=== PATIENT | female | born 1935 | race Asian ===

== ENCOUNTER 2017-01-28 15:29 | Emergency (ER) | payer MEDICARE, MEDICAID ==
[~2017-01-28] VITALS: Ht 162.6 cm; Wt 63.6 kg
[2017-01-28] MEDS ORDERED: FURO20 PO (16:02)
[2017-01-28] MEDS ORDERED: CEPHA2505L PO (16:29)
[2017-01-28] MEDS ORDERED: PRED20 PO (16:29)
[2017-01-28] MEDS ORDERED: DIPH12.54 PO (16:29)
[2017-01-28 16:45] LABS: EOSINOPHILS % (AUTO) 0.2 % (1.0-6.0); HEMATOCRIT 38.2 % (36-46); HEMOGLOBIN 12.4 g/dL (12.0-16.0); LYMPHOCYTES # (AUTO) 0.6 K/uL (1.0-4.8); LYMPHOCYTES % (AUTO) 8.1 % (22.0-44.0); MEAN CORPUSCULAR HEMOGLOBIN 25.3 pg (26.0-34.0); MEAN CORPUSCULAR HGB CONC 32.5 G/dL (31.0-37.0); MEAN CORPUSCULAR VOLUME 78 fL (80-100); MONOCYTES # (AUTO) 0.2 K/uL (0.1-1.0); MONOCYTES % (AUTO) 3.1 % (2.0-9.0); NEUTROPHILS # (AUTO) 6.2 K/uL (1.8-7.7); PLATELET COUNT (AUTO) 253 K/uL (150-450); RED CELL DISTRIBUTION WIDTH 16.3 % (11.5-14.5)
[2017-01-28 16:58] LABS: CALCIUM, TOTAL 8.1 mg/dL (8.8-10.5); CREATININE 1.15 mg/dL (0.60-1.30); POTASSIUM 3.9 mmol/L (3.5-5.1)
[2017-01-28 17:00] LABS: NEUTROPHILS % (AUTO) 88.6 % (40.0-70.0)
[2017-01-28 17:03] LABS: ALBUMIN 3.3 g/dL (3.4-5.0); BILIRUBIN,TOTAL 0.7 mg/dL (0.1-1.0); TOTAL PROTEIN, SERUM 6.1 g/dL (6.4-8.2)
[2017-01-28 17:07] LABS: INR 1.1 (0.9-1.1); PROTHROMBIN TIME 11.1 SEC (9.4-11.6)
[2017-01-28 17:18] LABS: RBC MORPHOLOGY COMMENT ABNORMAL RBC MORPH
[2017-01-28 18:30] VITALS: BP 126/82
== END 2017-01-28 19:04 | disposition home or self-care (01) ==
LOC: EMS 15:32
DX: N93.9 Abnormal uterine and vaginal bleeding, unspecified (principal); R60.0 Localized edema; G47.00 Insomnia, unspecified; I10 Essential (primary) hypertension; I48.91 Unspecified atrial fibrillation; E11.9 Type 2 diabetes mellitus without complications; Z79.82 Long term (current) use of aspirin
CPT/HCPCS: 76856; 93005; 99285

== ENCOUNTER 2017-02-18 19:21 | Emergency (ER) | payer MEDICARE, MEDICAID ==
[~2017-02-18] VITALS: Ht 160 cm; Wt 81.8 kg
[~2017-02-18 19:21] MED LIST: CEPHA2505L PO; DIPH12.54 PO; FURO20 PO; PRED20 PO
[2017-02-18] MEDS ORDERED: SULF1TAB42 PO (19:47)
[2017-02-18] MEDS ORDERED: HYD25 PO (19:47)
[2017-02-18] MEDS ORDERED: ASPI81TA42 PO (19:47)
[2017-02-18 20:44] VITALS: BP 101/69
[2017-02-18] MEDS ORDERED: CEPHALEXIN MONOHYDRATE 500 MG CAPSULE PO ONE (21:00)
[2017-02-18 21:06] LABS: GLUCOSE,POINT OF CARE 128 MG/DL (70-110)
== END 2017-02-18 21:35 | disposition home or self-care (01) ==
LOC: EMS 19:33
DX: H60.13 Cellulitis of external ear, bilateral (principal); E11.9 Type 2 diabetes mellitus without complications; I10 Essential (primary) hypertension; I48.91 Unspecified atrial fibrillation
CPT/HCPCS: 82962; 99283

== ENCOUNTER 2018-09-02 15:22 | Emergency (ER) | payer MEDICARE, MEDICAID ==
[~2018-09-02] VITALS: Ht 160 cm; Wt 65.9 kg
[~2018-09-02 15:22] MED LIST changes: +ASPI81TA42 PO; -CEPHA2505L PO; -DIPH12.54 PO; +HYD25 PO; -PRED20 PO; +SULF1TAB42 PO
[2018-09-02 18:00] VITALS: BP 125/79
== END 2018-09-02 18:11 | disposition home or self-care (01) ==
LOC: EMS 15:23
DX: K59.00 Constipation, unspecified (principal); K64.4 Residual hemorrhoidal skin tags; I48.91 Unspecified atrial fibrillation; I10 Essential (primary) hypertension; Z79.82 Long term (current) use of aspirin; Z79.899 Other long term (current) drug therapy